=== PATIENT | male | born 1985 | race Two or more races ===

== ENCOUNTER 2024-03-18 15:18 | Inpatient (IN) | payer MEDICAID ==
[~2024-03-18] VITALS: Ht 162.6 cm; Wt 74.4 kg
[2024-03-18] MEDS ORDERED: FENTANYL CITRATE 100 MCG/2 ML AMPUL ONE (15:37)
[2024-03-18] MEDS ORDERED: ONDANSETRON 4 MG/2 ML VIAL ONE (15:37)
[2024-03-18] MEDS ORDERED: CEFAZOLIN 1 G VIAL ONE ×2 (15:38→21:44)
[2024-03-18 15:57] LABS: BASOPHILS # (AUTO) 0.3 K/UL (0.0-0.2); BASOPHILS % (AUTO) 2.9 % (0.0-2.0); CALCIUM 8.7 mg/dL (8.5-10.1); CARBON DIOXIDE 24 mmol/L (21-32); CHLORIDE 105 mmol/L (98-107); CREATININE 1.5 mg/dL (0.6-1.3); EOSINOPHILS % (AUTO) 0.5 % (0.0-7.0); GLUCOSE 148 mg/dL (74-106); HEMOGLOBIN 14.5 g/dL (12.5-16.3); LYMPHOCYTES # (AUTO) 1.7 K/uL (0.8-4.8); LYMPHOCYTES % (AUTO) 18.4 % (20.5-51.5); MEAN CORPUSCULAR HEMOGLOBIN 30.2 uug (23.8-33.4); MEAN CORPUSCULAR HGB CONC 34 g/dL (32.5-36.3); MEAN CORPUSCULAR VOLUME 89.2 fL (73.0-96.2); MONOCYTES # (AUTO) 0.5 K/uL (0.1-1.30); MONOCYTES % (AUTO) 5.2 % (0.0-11.0); NEUTROPHILS # (AUTO) 6.7 K/uL (1.8-8.9); PLATELET COUNT (AUTO) 296 K/uL (152-348); POTASSIUM 3.9 mmol/L (3.5-5.1); RED BLOOD CELL COUNT(AUTO) 4.82 MIL/uL (4.06-5.63); RED CELL DISTRIBUTION WIDTH 13.5 % (12.1-16.2); SODIUM SERUM 143 mmol/L (136-145); UREA NITROGEN, BLOOD 19 mg/dL (7-18); WHITE BLOOD COUNT (AUTO) 9.1 K/uL (3.6-10.2)
[2024-03-18 16:06] LABS: ALANINE AMINOTRANSFERASE 28 U/L (16-63); ALBUMIN 4.1 g/dL (3.4-5.0); ALKALINE PHOSPHATASE 130 U/L (50-136); ASPARTATE AMINOTRANSFERASE 17 U/L (15-37); BILIRUBIN,DIRECT 0.1 mg/dL (0.0-0.2); BILIRUBIN,TOTAL 0.6 mg/dL (0.2-1.0); LIPASE 27 U/L (16-77); TOTAL PROTEIN, SERUM 7.7 g/dL (6.4-8.2)
[2024-03-18] MEDS: CEFAZOLIN 1 G in IV DEXTROSE 5% 50 ML IV ONE (16:11)
[2024-03-18] MEDS: FENTANYL CITRATE 100 MCG/2 ML AMPUL IV ONE (16:12)
[2024-03-18] MEDS: ONDANSETRON 4 MG/2 ML VIAL IV ONE ×2 (16:13→18:38)
[2024-03-18] MEDS ORDERED: ONDANSETRON 4 MG/2 ML VIAL IV PRN (18:00)
[2024-03-18] MEDS ORDERED: HYDROCODONE/APAP 5-325MG TABLET PO PRN (18:00)
[2024-03-18] MEDS ORDERED: MAGNESIUM HYDROXIDE 30 ML LIQUID UDC PO PRN (18:00)
[2024-03-18] MEDS ORDERED: ACETAMINOPHEN 325 MG TABLET PO PRN (18:00)
[2024-03-18] MEDS: IV NORMAL SALINE 1000 ML BAG IV ONE (18:35)
[2024-03-18] MEDS: HYDROMORPHONE 1 MG/1 ML DISP.SYRIN IV ONE (18:40)
[2024-03-18 21:32] VITALS: BP 124/85; TEMP 98.6; O2SAT 97
[2024-03-18] MEDS: IV NS 1000 ML 1,000 ML IV PRN (21:33)
[2024-03-18] MEDS: CEFAZOLIN 1 G in IV DEXTROSE 5% 50 ML IV SCH (22:06)
[2024-03-18] MEDS: HYDROMORPHONE 1 MG/1 ML DISP.SYRIN IV PRN (23:32)
[2024-03-19 04:34] VITALS: BP 108/65; TEMP 98.9; O2SAT 98
[2024-03-19 06:15] LABS: BASOPHILS % (AUTO) 0.4 % (0.0-2.0); EOSINOPHILS % (AUTO) 0.7 % (0.0-7.0); HEMATOCRIT 38.2 % (36.7-47.1); HEMOGLOBIN 13.3 g/dL (12.5-16.3); LYMPHOCYTES # (AUTO) 1.9 K/uL (0.8-4.8); LYMPHOCYTES % (AUTO) 26.2 % (20.5-51.5); MEAN CORPUSCULAR HEMOGLOBIN 31.1 uug (23.8-33.4); MEAN CORPUSCULAR HGB CONC 35 g/dL (32.5-36.3); MEAN CORPUSCULAR VOLUME 89.5 fL (73.0-96.2); MONOCYTES # (AUTO) 0.5 K/uL (0.1-1.30); MONOCYTES % (AUTO) 7.1 % (0.0-11.0); NEUTROPHILS # (AUTO) 4.8 K/uL (1.8-8.9); NEUTROPHILS % (AUTO) 65.6 % (38.5-71.5); PLATELET COUNT (AUTO) 248 K/uL (152-348); RED BLOOD CELL COUNT(AUTO) 4.27 MIL/uL (4.06-5.63); RED CELL DISTRIBUTION WIDTH 13.6 % (12.1-16.2); WHITE BLOOD COUNT (AUTO) 7.3 K/uL (3.6-10.2)
[2024-03-19 06:26] LABS: DIFFERENTIAL COMMENT 1
[2024-03-19 06:45] LABS: CALCIUM 8.3 mg/dL (8.5-10.1); CREATININE 1.1 mg/dL (0.6-1.3); PHOSPHOROUS 3.4 mg/dL (2.5-4.9); POTASSIUM 3.9 mmol/L (3.5-5.1)
[2024-03-19] MEDS ORDERED: FENTANYL CITRATE 100 MCG/2 ML AMPUL ONE ×2 (08:03→12:13)
[2024-03-19] MEDS ORDERED: ROCURONIUM BROMIDE 50 MG/5 ML VIAL ONE (08:03)
[2024-03-19] MEDS ORDERED: MIDAZOLAM HCL 2 MG/2 ML VIAL ONE (08:03)
[2024-03-19] MEDS ORDERED: PROPOFOL 200 MG/20 ML BOTTLE ONE (08:16)
[2024-03-19] MEDS ORDERED: SEVOFLURANE 250 ML BOTTLE ONE (08:18)
[2024-03-19] MEDS ORDERED: VANCOMYCIN 1000 MG VIAL ONE (09:12)
[2024-03-19] MEDS ORDERED: HYDROMORPHONE 2 MG/1 ML DISP.SYRIN ONE (09:51)
[2024-03-19] MEDS ORDERED: HYDROCODONE/APAP 5-325MG TABLET ONE (13:05)
[2024-03-19 13:35] VITALS: BP 138/79; TEMP 98.1; O2SAT 98
[2024-03-19] MEDS: IV D5W-0.45% NS +20 KCL 1,000 ML IV PRN (14:28)
[2024-03-19] MEDS: CEFAZOLIN 1 G in IV DEXTROSE 5% 50 ML IV SCH (16:07)
[2024-03-19 16:21] VITALS: BP 146/88; TEMP 98.1; O2SAT 99
[2024-03-19] MEDS: MORPHINE SULFATE 4 MG/1 ML DISP.SYRIN IV PRN (17:05)
[2024-03-19 20:15] VITALS: BP 138/83; TEMP 98.9; O2SAT 100
[2024-03-19] MEDS: HYDROCODONE/APAP 10-325 MG TABLET PO PRN (20:33)
[2024-03-20 06:00] VITALS: BP 111/64; TEMP 98.4; O2SAT 97
[2024-03-20 07:31] LABS: BASOPHILS % (AUTO) 0.2 % (0.0-2.0); EOSINOPHILS % (AUTO) 0.1 % (0.0-7.0); HEMOGLOBIN 12.6 g/dL (12.5-16.3); LYMPHOCYTES # (AUTO) 2.7 K/uL (0.8-4.8); LYMPHOCYTES % (AUTO) 29.2 % (20.5-51.5); MEAN CORPUSCULAR HEMOGLOBIN 31.3 uug (23.8-33.4); MEAN CORPUSCULAR HGB CONC 35 g/dL (32.5-36.3); MEAN CORPUSCULAR VOLUME 89.4 fL (73.0-96.2); MONOCYTES # (AUTO) 0.8 K/uL (0.1-1.30); NEUTROPHILS # (AUTO) 5.6 K/uL (1.8-8.9); NEUTROPHILS % (AUTO) 61.5 % (38.5-71.5); PLATELET COUNT (AUTO) 249 K/uL (152-348); RED BLOOD CELL COUNT(AUTO) 4.03 MIL/uL (4.06-5.63); RED CELL DISTRIBUTION WIDTH 13.5 % (12.1-16.2); WHITE BLOOD COUNT (AUTO) 9.1 K/uL (3.6-10.2)
[2024-03-20 07:39] LABS: DIFFERENTIAL COMMENT 1
[2024-03-20 07:46] LABS: CALCIUM 8.1 mg/dL (8.5-10.1); PHOSPHOROUS 2.9 mg/dL (2.5-4.9); POTASSIUM 3.7 mmol/L (3.5-5.1)
[2024-03-20] MEDS ORDERED: HYDR-3972 PO (10:13)
[2024-03-20] MEDS ORDERED: ASPI-612 PO (10:13)
[2024-03-20] MEDS: ASPIRIN 325 MG TABLET PO SCH (11:01)
[2024-03-20 12:00] VITALS: BP 120/70; TEMP 99; O2SAT 97
[2024-03-20 16:00] VITALS: BP 122/80; TEMP 99.4; O2SAT 98
[2024-03-20 20:00] VITALS: BP 117/78; TEMP 99.1; O2SAT 96
[2024-03-21 06:15] VITALS: BP 118/68; TEMP 98.3; O2SAT 97
[2024-03-21] MEDS ORDERED: HYDR-3972 PO (11:47)
[2024-03-21] MEDS ORDERED: ASPI-612 PO (11:47)
[2024-03-21 13:10] VITALS: BP 120/60; TEMP 98; O2SAT 97
[2024-03-21 16:00] VITALS: BP 126/69; TEMP 98.7; O2SAT 98
== END 2024-03-21 18:30 | disposition home or self-care (01) | DRG 313 ==
LOC: ER 15:20 → MEDSURG3 20:40
PROVIDERS: ADMIT Nurse Practitioner Acute Care; ATTEND Nurse Practitioner Acute Care
PROC: 2W3QX1Z Immobilization of Right Lower Leg using Splint (ICD-10-PCS; 2024-03-18)
PROC: 0QSG04Z Reposition Right Tibia with Internal Fixation Device, Open Approach (ICD-10-PCS; principal; 2024-03-19)
PROC: 0QUJ0JZ Supplement Right Fibula with Synthetic Substitute, Open Approach (ICD-10-PCS; principal; 2024-03-19)
PROC: 0QSJ04Z Reposition Right Fibula with Internal Fixation Device, Open Approach (ICD-10-PCS; principal; 2024-03-19)
DX: S82.871 Displaced pilon fracture of right tibia (principal); N17.0 Acute kidney failure with tubular necrosis; S82.831C Other fracture of upper and lower end of right fibula, initial encounter for open fracture type IIIA, IIIB, or IIIC; W11.XXXA Fall on and from ladder, initial encounter; Y93.H3 Activity, building and construction; Y92.61 Building [any] under construction as the place of occurrence of the external cause; Y99.0 Civilian activity done for income or pay; Z74.09 Other reduced mobility; D68.59 Other primary thrombophilia
CPT/HCPCS: 36415; 71045; 73590; 83690; 83735; 84100; 84484; 85025; 85730; 86850; 86900; 86901; 93005; A4606; A4649; A4663; C1713; G0378; J0690; J1100; J1170; J1885; J2250; J2270; J2405; J2765; J3010; J3370; J3490; J7040